=== PATIENT | male | born 1940 | race Caucasian/White ===

== ENCOUNTER → 2018-07-24 08:59 | Outpatient (CLI) | payer OTHER, SELFPAY ==
[2018-07-24 10:10] LABS: Add Manual Diff / Slide Review NO; Basophils Percent Auto 0.7 % (0-2); Eosinophils Percent Auto 3.3 % (2-4); Hematocrit 39.8 % (41-53); Hemoglobin 13.7 g/dL (13.5-17.5); Lymphocytes Percent Auto 24.2 % (25-40); Mean Corpuscular HGB Conc 34.4 % (30-36); Monocytes Percent Auto 9.3 % (3-14); Neutrophils Absolute Auto 3400 /uL (3000-5900); Neutrophils Percent Auto 62.5 % (50-75); Platelet Count 163 X10^3/uL (150-400); Red Blood Cell Count 4.15 X10^6/uL (4.5-5.9); Red Cell Distribution Width 13.3 % (11.6-14.8); White Blood Cell Count 5.5 X10^3/uL (4.5-11.0)
[2018-07-24 10:41] LABS: Alanine Aminotransferase 25 IU/L (21-72); Albumin 4.5 g/dL (3.5-5.0); Albumin Globulin Ratio 1.4 (1.0-2.8); Alkaline Phosphatase 54 U/L (38-126); Aspartate Aminotransferase 25 IU/L (17-59); BUN Creatinine Ratio 14.2 (6-22); Bilirubin Total 1.3 mg/dL (0.2-1.3); Blood Urea Nitrogen 17 mg/dL (9-20); Calcium 9.5 mg/dL (8.4-10.2); Carbon Dioxide 33 mmol/L (22-32); Chloride 99 mmol/L (98-107); Cholesterol 153 mg/dL (140-199); Estimated Glomerular Filt Rate 58.3 mL/min (>60); Globulin 3.3 g/dL (1.7-4.1); Glucose 94 mg/dL (80-110); HDL Cholesterol 46 mg/dL (40-60); HEMOLYSIS < 15 (0-50); LDL Cholesterol Calculated 84 mg/dL (<100); Potassium 4.8 mmol/L (3.4-5.1); Sodium 141 mmol/L (137-145); Total Protein 7.8 g/dL (6.3-8.2); Triglycerides 114 mg/dL (35-150)
[2018-07-24 11:08] LABS: Prostate Specific Antigen 0.656 ng/mL (0.10-4.00)
[2018-07-24 11:09] LABS: Thyroid Stimulating Hormone 1.25 uIU/mL (0.47-4.68)
== END ==
PROVIDERS: PCP Family Medicine; Visit Provider Family Medicine
DX: E78.5 Hyperlipidemia, unspecified (principal); I10 Essential (primary) hypertension; I77.9 Disorder of arteries and arterioles, unspecified
CPT/HCPCS: 36415; 80053; 80061; 84153; 84443; 85025

== ENCOUNTER → 2018-08-08 10:40 | Outpatient (CLI) | payer OTHER, SELFPAY ==
--- NOTE | 2018-08-08 10:42 | DI.US.S_ITS ---
PROCEDURE: US CAROTID DOPPLER BI INDICATIONS: CAD TECHNIQUE: Color and pulse Doppler interrogation was performed of both carotid systems, with image documentation and velocity measurements. COMPARISON: [facility], [place], CAROTID ARTERY DOPPLER BILAT, 02/01/2016, 12:46. [facility], [place], CAROTID ARTERY DOPPLER BILAT, 09/10/2014, 9:39. [facility], [place], CAROTID ARTERY DOPPLER BILAT, 03/27/2012, 9:47. FINDINGS: Stenosis calculations are based on SRU (Society of Radiologists in Ultrasound) criteria. Right side: Brachial blood pressure: 124/64 mm Hg. Common carotid artery peak systolic velocity: 90 cm/sec. Internal carotid artery peak systolic velocity: 99 cm/sec. Internal carotid artery end diastolic velocity: 11 cm/sec. External carotid artery peak systolic velocity: 99 cm/sec. ICA/CCA peak systolic ratio: 1.1. 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 Vertebral artery: Flow direction is antegrade. Left side: Brachial blood pressure: 124 was any 3 mm Hg. Common carotid artery peak systolic velocity: 131 cm/sec. Internal carotid artery peak systolic velocity: 107 cm/sec. Internal carotid artery end diastolic velocity: 12 cm/sec. External carotid artery peak systolic velocity: 124 cm/sec. ICA/CCA peak systolic ratio: 0.8. Gautam scale imaging description: Mild soft plaque Percent internal carotid artery stenosis: Less than 50% stenosis. Vertebral artery: Flow direction is antegrade. IMPRESSION: Less than 50% stenosis at the proximal internal carotid arteries bilaterally. Dictated by: Riley Askew M.D. on 08/08/2018 at 12:31 Approved by: Riley Askew M.D. on 08/08/2018 at 12:52
== END ==
PROVIDERS: PCP Family Medicine; Visit Provider Family Medicine
DX: I65.23 Occlusion and stenosis of bilateral carotid arteries (principal); I25.10 Atherosclerotic heart disease of native coronary artery without angina pectoris
CPT/HCPCS: 93880

== ENCOUNTER → 2019-08-09 08:41 | Outpatient (CLI) | payer OTHER, SELFPAY ==
[2019-08-09 10:29] LABS: Alanine Aminotransferase 23 IU/L (21-72); Albumin 4.3 g/dL (3.5-5.0); Albumin Globulin Ratio 1.3 (1.0-2.8); Alkaline Phosphatase 50 U/L (38-126); Aspartate Aminotransferase 34 IU/L (17-59); BUN Creatinine Ratio 12.7 (6-22); Blood Urea Nitrogen 14 mg/dL (9-20); Calcium 9.2 mg/dL (8.4-10.2); Carbon Dioxide 31 mmol/L (22-32); Chloride 102 mmol/L (98-107); Cholesterol 149 mg/dL (140-199); Estimated Glomerular Filt Rate > 60.0 mL/min (>60); Globulin 3.2 g/dL (1.7-4.1); Glucose 95 mg/dL (80-110); HDL Cholesterol 41 mg/dL (40-60); HEMOLYSIS < 15 (0-50); LDL Cholesterol Calculated 83 mg/dL (<100); Potassium 4.4 mmol/L (3.4-5.1); Sodium 141 mmol/L (137-145); Total Protein 7.5 g/dL (6.3-8.2); Triglycerides 125 mg/dL (35-150)
[2019-08-09 10:35] LABS: Add Manual Diff / Slide Review NO; Basophils Absolute Auto 100 /uL (0-100); Basophils Percent Auto 0.9 % (0-2); Eosinophils Absolute Auto 300 /uL (0-450); Eosinophils Percent Auto 5.8 % (2-4); Hematocrit 37.6 % (41-53); Hemoglobin 12.8 g/dL (13.5-17.5); Lymphocytes Absolute Auto 1400 /uL (1100-4500); Lymphocytes Percent Auto 23.5 % (25-40); Mean Corpuscular HGB Conc 33.9 % (30-36); Mean Corpuscular Volume 97.4 fL (80-100); Monocytes Absolute Auto 500 /uL (0-900); Monocytes Percent Auto 8.5 % (3-14); Neutrophils Absolute Auto 3600 /uL (1500-7000); Neutrophils Percent Auto 61.3 % (50-75); Platelet Count 185 X10^3/uL (150-400); Red Blood Cell Count 3.87 X10^6/uL (4.5-5.9); Red Cell Distribution Width 13.7 % (11.6-14.8); White Blood Cell Count 5.9 X10^3/uL (4.5-11.0)
[2019-08-09 10:53] LABS: Prostate Specific Antigen Scrn 0.687 ng/mL (0.1-4.0)
[2019-08-09 11:29] LABS: Thyroid Stimulating Hormone 1.69 uIU/mL (0.47-4.68)
== END ==
PROVIDERS: PCP Family Medicine; Visit Provider Family Medicine
DX: Z12.5 Encounter for screening for malignant neoplasm of prostate (principal); Z13.0 Encounter for screening for diseases of the blood and blood-forming organs and certain disorders involving the immune mechanism; Z13.1 Encounter for screening for diabetes mellitus; Z13.220 Encounter for screening for lipoid disorders; Z13.29 Encounter for screening for other suspected endocrine disorder; Z13.6 Encounter for screening for cardiovascular disorders
CPT/HCPCS: 36415; 80053; 80061; 84443; 85025; G0103

== ENCOUNTER → 2020-04-09 08:33 | Outpatient (CLI) | payer OTHER, SELFPAY ==
[2020-04-09 10:19] LABS: Cholesterol 136 mg/dL (140-199); HDL Cholesterol 43 mg/dL (40-60); LDL Cholesterol Calculated 75 mg/dL (<100); Triglycerides 89 mg/dL (35-150)
== END ==
PROVIDERS: PCP Family Medicine; Referring Provider Family Medicine; Visit Provider Family Medicine
DX: E78.5 Hyperlipidemia, unspecified (principal)
CPT/HCPCS: 36415; 80061

== ENCOUNTER 2020-08-04 08:52 | Emergency (ER) | payer OTHER, SELFPAY ==
[2020-08-04] VITALS (8 sets, daily range): BP systolic 170–206; BP diastolic 77–85; PULSE 55–59; RESP 12–18; TEMP 37.1; O2SAT 98–100; BMI 25.1
--- NOTE | 2020-08-04 08:58 | DI.RAD.S_ITS ---
PROCEDURE: XR CHEST 1V INDICATIONS: Chest pain TECHNIQUE: One view of the chest was acquired. COMPARISON: [facility], , CHEST 2 VIEW, 11/07/2008, 13:30. FINDINGS: Surgical changes and devices: None. Lungs and pleura: Lungs are clear. No pleural effusions or pneumothorax. Mediastinum: Mediastinal contours appear normal. Heart size is normal. Bones and chest wall: No suspicious bony lesions. Overlying soft tissues appear unremarkable. IMPRESSION: No acute pulmonary process. Dictated by: Emy Lebron M.D. on 08/04/2020 at 9:28 Approved by: Emy Lebron M.D. on 08/04/2020 at 9:30
--- NOTE | 2020-08-04 09:18 | ED.CHESTPAIN ---
HPI - Chest Pain General Chief Complaint: Chest Pain Stated Complaint: chest discomfort Time Seen by Provider: 08/04/20 08:57 Source: patient Mode of arrival: Ambulatory Limitations: no limitations History of Present Illness HPI narrative: 80-year-old male here for evaluation of left-sided chest discomfort. Patient states that it occurred earlier today when he was walking [place] He states it was a fairly sudden onset. Did cause him to have to stop. No other associated symptoms. Not worse with palpation or breathing. He is unsure as to how long it lasted be did not think it was very long. He was symptom-free since arriving here in the emergency department. He states he has had very similar symptoms off and on for the past several months. He states that it is not always associated with walking or exerting himself. It can happen when he is just sitting. Does see a sales representative [employer]. States that he has had evaluation of his heart in the past but never for the symptoms that brought him in to the emergency department today or that have been happening over the past several months. Related Data Home Medications Medication Instructions Recorded Confirmed ASPIRIN (Aspirin) 81 mg PO Q DAY #0 08/22/11 04/01/20 Previous Rx's Medication Instructions Recorded carvedilol [Coreg] 3.125 mg PO BID #180 tab 04/14/17 clopidogrel [Plavix] 75 mg PO QDAY #90 tab 04/24/17 ramipril [Altace] 2.5 mg PO Q DAY #90 cap 06/08/17 rosuvastatin 10 mg tablet 10 mg PO QDAY #45 tab 07/02/19 hydroxyzine pamoate 25 mg capsule 25 mg PO TID PRN #60 cap 04/01/20 triamcinolone acetonide 0.1 % 1 applictn TOP BID #80 gram 04/01/20 topical cream isosorbide dinitrate 30 mg PO DAILY #30 tab 08/04/20 Allergies Allergy/AdvReac Type Severity Reaction Status Date / Time No Known Drug Allergies Allergy Unverified 08/13/19 14:12 Review of Systems Constitutional Constitutional: Denies fever(s) and Denies headache(s) ENT Ears, Nose, Mouth, and Throat: Denies headache(s) Cardiovascular Cardiovascular: Reports chest pain, Denies syncope, Denies rapid heart rate, Denies pedal edema, Denies irregular heart rhythm, Denies leg edema, Denies dyspnea and Denies orthopnea Respiratory Respiratory: Denies cough and Denies dyspnea Gastrointestinal Gastrointestinal: Denies abdominal pain, Denies nausea and Denies vomiting Genitourinary Genitourinary: Denies dysuria Genitourinary: Denies dysuria Musculoskeletal Musculoskeletal: Denies arthralgias and Denies myalgias Integumentary/Breasts Skin/Breast: Denies lesions and Denies rash Neurologic Neurologic: Denies behavioral changes, Denies syncope and Denies headache(s) Psychiatric Psychiatric: Denies behavioral changes Hematologic/Lymphatic Hematologic/Lymphatic: Denies easy bleeding and Denies easy bruising Allergic/Immunologic Allergic/Immunologic: Denies urticaria Patient History Medical History Carotid artery disease (Chronic) Chicken pox (Resolved ~1940) Constipation (Chronic) Coronary artery disease (Chronic ~2002) Fractures (Resolved) GERD (gastroesophageal reflux disease) (Chronic) Glaucoma (Chronic) Hearing deficit (Chronic) Hypertension (Chronic) Liver disease (Chronic) Loss of teeth (Chronic) Measles (Resolved ~1944) Mumps (Resolved ~1944) Peripheral vascular disease (Chronic) Shingles (Resolved ~2007) Skin cancer (Chronic ~2009) Skin inflammation (Chronic ~2010) TIA (transient ischemic attack) (Resolved ~2004) Tinnitus (Chronic) Vision disorder (Chronic) Surgical History (Updated 08/13/19 @ 17:18 by Shamar Rivas MD) Anesthesia (Resolved) History of surgery (Resolved) Status post appendectomy (~1944) Social History Smoking Status: Never smoker Smoking Status: Never smoker alcohol intake frequency: a few times a month Alcohol type: wine Substance Use Type: does not use Exam Initial Vital Signs Initial Vital Signs: Vital Signs Temperature 98.7 F 08/04/20 09:02 Pulse Rate 56 L 08/04/20 09:02 Respiratory Rate 18 08/04/20 09:02 Blood Pressure 170/77 H 08/04/20 09:02 Pulse Oximetry 99 08/04/20 09:02 Const General: cooperative and comfortable Limitations: mental status not altered HENMT Head: normal to inspection and normocephalic Resp Effort & Inspection: normal respiratory effort Auscultation: clear to auscultation bilaterally Cardio Rate: bradycardic Rhythm: regular rhythm Pulses: radial pulses present GI Inspection: non-distended Palpation: soft, No firm and No tender Skin Lesions: no lesions Rashes: no rashes Neuro General: patient alert and patient awake Cognition: normal cognition Speech: speech normal Extrem General: normal to inspection and capillary refill normal Psych Appearance: grossly normal and well kempt Scores GCS [place] coma scale eye opening: Spontaneous Varinder coma scale verbal response: Orientated Varinder coma scale motor response: Obey commands Varinder coma scale total score: 15 Course Orders Ordered: ED Orders 08/04/20 08:58 XR chest 1V Stat EKG-12 Lead Stat 08/04/20 09:41 Complete Blood Count AUTO DIFF Stat Comprehensive Metabolic Panel Stat Lipase Stat Partial Thromboplastin Time Stat Prothrombin Time INR Stat Troponin & CK Cardiac Panel Stat Vital Signs Vital signs: Vital Signs - 8 hr 08/04/20 09:02 08/04/20 10:09 08/04/20 10:30 Temperature 98.7 F Pulse Rate 56 L 56 L 55 L Respiratory Rate 18 Blood Pressure 170/77 H 187/85 H Pulse Oximetry 99 99 99 MDM - Chest Pain Lab Data Attestation: I reviewed the patient's lab results. Result diagrams: 08/04/20 09:41 08/04/20 09:41 Labs: Lab Results 08/04/20 08/04/20 08/04/20 Range/Units 09:41 09:41 09:41 WBC 6.0 (4.5-11.0) X10^3/uL RBC 3.75 L (4.5-5.9) X10^6/uL Hgb 12.4 L (13.5-17.5) g/dL Hct 36.5 L (41-53) % MCV 97.4 (80-100) fL MCH 32.9 (26-34) PG MCHC 33.8 (30-36) % RDW 13.6 (11.6-14.8) % Plt Count 160 (150-400) X10^3/uL Neut % (Auto) 59.6 (50-75) % Lymph % (Auto) 26.6 (25-40) % [place] % (Auto) 9.8 (3-14) % Eos % (Auto) 3.5 (2-4) % Baso % (Auto) 0.5 (0-2) % Neut # (Auto) 3600 (1952-6354) /uL Lymph # (Auto) 1600 (0389-4370) /uL [place] # (Auto) 600 (0-900) /uL Eos # (Auto) 200 (0-450) /uL Baso # (Auto) 0 (0-100) /uL PT 12.7 (10.1-12.7) SECONDS INR 1.1 (0.9-1.3) APTT 31 (26.4-36.2) SECONDS Sodium 138 (137-145) mmol/L Potassium 4.3 (3.4-5.1) mmol/L Chloride 104 (98-107) mmol/L Carbon Dioxide 29 (22-32) mmol/L BUN 18 (9-20) mg/dL Creatinine 1.06 (0.66-1.25) mg/dL Estimated GFR > 60.0 (>60) mL/min BUN/Creatinine Ratio 17.0 (6-22) Glucose 97 (80-110) mg/dL Calcium 8.9 (8.4-10.2) mg/dL Total Bilirubin 0.8 (0.2-1.3) mg/dL AST 24 (17-59) IU/L ALT 16 (<50) IU/L Alkaline Phosphatase 51 (38-126) U/L Total Creatine Kinase 107 (55-170) U/L CK-MB (CK-2) 1.77 (<2.37) ng/mL CK-MB (CK-2) Rel Index 1.7 (1.5-5.0) % Troponin I < 0.012 (0.01-0.034) ng/mL Total Protein 7.2 (6.3-8.2) g/dL Albumin 4.0 (3.5-5.0) g/dL Globulin 3.2 (1.7-4.1) g/dL Albumin/Globulin Ratio 1.3 (1.0-2.8) Lipase 66 (23-300) U/L Imaging Data Chest x-ray: Radiologist's Impression: [address] [address] XRay Report Signed Patient: Zana Jeter R#: [id number] : 8Acct:[id number] Age/Sex: 80 / MDate of Service: 08/04/20 Loc: ED Accession Number: [id number] Procedure: XR chest 1V Ordering Provider: Brayan Edwards D.O. PROCEDURE: XR CHEST 1V INDICATIONS: Chest pain TECHNIQUE: One view of the chest was acquired. COMPARISON: [facility], CHEST 2 VIEW, 11/07/2008, 13:30. FINDINGS: Surgical changes and devices: None. Lungs and pleura: Lungs are clear. No pleural effusions or pneumothorax. Mediastinum: Mediastinal contours appear normal. Heart size is normal. Bones and chest wall: No suspicious bony lesions. Overlying soft tissues appear unremarkable. IMPRESSION: No acute pulmonary process. Dictated by: Emy Lebron M.D. on 08/04/2020 at 9:28 Approved by: Emy Lebron M.D. on 08/04/2020 at 9:30 ECG Data Attestation: I personally reviewed and interpreted this ECG as follows: Prior ECG tracings: not available for review Interpretation: Sinus bradycardia Ventricular rate of 58 First degree AV block appear interval 2 week 2 milliseconds Normal QRS Normal QTC No ST T wave changes MDM Narrative Medical decision making narrative: Patient has been asymptomatic since being here in the ER. Has 1st degree AV block. Troponins negative. He has known coronary artery disease. I did discuss the case with Dr. Robb who is the patient's sales representative [employer]. Dr. Robb recommended that we place the patient on Imdur and patellar states that his office will contact the patient in the next day to schedule him for a nuclear stress test. I did discuss this with the patient. We discussed strict return precautions. He expressed understanding and agreement. Discharge Plan Departure Patient Disposition: Home Clinical Impression: Chest pain Instructions: DI for Chest Pain Activity Restrictions/Additional Instructions: Dr. Robb would like you to start on a medication called Imdur. Prescription for this was provided to you today. Please fill it and start taking as directed. This will be in addition to all of your other medications. His office will also contact you to schedule an appointment this week. If you do not hear from them today please contact their office tomorrow morning. Return to the emergency department for any new or worsening symptoms. Prescriptions: New isosorbide dinitrate 30 mg tablet 30 mg PO DAILY Qty: 30 RF: 0 No Action ASPIRIN (Aspirin) 81 mg PO Q DAY Qty: 0 RF: 0 carvedilol [Coreg] 3.125 MG tablet 3.125 mg PO BID Qty: 180 RF: 3 clopidogrel [Plavix] 75 MG tablet 75 mg PO QDAY Qty: 90 RF: 3 ramipril [Altace] 2.5 MG capsule 2.5 mg PO Q DAY Qty: 90 RF: 0 rosuvastatin [Crestor] 10 mg tablet 10 mg PO QDAY Qty: 45 RF: 3 triamcinolone acetonide 0.1 % cream 1 applictn TOP BID Qty: 80 RF: 3 hydroxyzine pamoate 25 mg capsule 25 mg PO TID PRN (Reason: itching) Qty: 60 RF: 5 Referrals: Shamar Rivas MD [Primary Care Provider] -
--- NOTE | 2020-08-04 09:25 | PC.NURSE ---
Pt declines IV
[2020-08-04 09:49] LABS: Add Manual Diff / Slide Review NO; Basophils Absolute Auto 0 /uL (0-100); Basophils Percent Auto 0.5 % (0-2); Eosinophils Absolute Auto 200 /uL (0-450); Eosinophils Percent Auto 3.5 % (2-4); Hematocrit 36.5 % (41-53); Hemoglobin 12.4 g/dL (13.5-17.5); Lymphocytes Absolute Auto 1600 /uL (1100-4500); Lymphocytes Percent Auto 26.6 % (25-40); Mean Corpuscular HGB Conc 33.8 % (30-36); Mean Corpuscular Hemoglobin 32.9 PG (26-34); Mean Corpuscular Volume 97.4 fL (80-100); Monocytes Absolute Auto 600 /uL (0-900); Monocytes Percent Auto 9.8 % (3-14); Neutrophils Absolute Auto 3600 /uL (1500-7000); Neutrophils Percent Auto 59.6 % (50-75); Platelet Count 160 X10^3/uL (150-400); Red Blood Cell Count 3.75 X10^6/uL (4.5-5.9); Red Cell Distribution Width 13.6 % (11.6-14.8)
[2020-08-04 09:57] LABS: INR 1.1 (0.9-1.3); Prothrombin Time 12.7 SECONDS (10.1-12.7)
[2020-08-04 10:00] LABS: PTT Partial Thromboplastin Tim 31 SECONDS (26.4-36.2)
[2020-08-04 10:04] LABS: Alanine Aminotransferase 16 IU/L (<50); Albumin Globulin Ratio 1.3 (1.0-2.8); Alkaline Phosphatase 51 U/L (38-126); Aspartate Aminotransferase 24 IU/L (17-59); Bilirubin Total 0.8 mg/dL (0.2-1.3); Blood Urea Nitrogen 18 mg/dL (9-20); Calcium 8.9 mg/dL (8.4-10.2); Carbon Dioxide 29 mmol/L (22-32); Chloride 104 mmol/L (98-107); Creatine Kinase 107 U/L (55-170); Estimated Glomerular Filt Rate > 60.0 mL/min (>60); Globulin 3.2 g/dL (1.7-4.1); Glucose 97 mg/dL (80-110); HEMOLYSIS < 15 (0-50); Lipase 66 U/L (23-300); Potassium 4.3 mmol/L (3.4-5.1); Sodium 138 mmol/L (137-145); Total Protein 7.2 g/dL (6.3-8.2)
[2020-08-04 10:14] LABS: Troponin I < 0.012 ng/mL (0.01-0.034)
[2020-08-04 10:19] LABS: CKMB % Relative Index 1.7 % (1.5-5.0); Creatine Kinase MB 1.77 ng/mL (<2.37)
== END 2020-08-04 11:46 | disposition home or self-care (01) ==
PROVIDERS: Emergency Provider Emergency Medicine; PCP Family Medicine
DX: R07.9 Chest pain, unspecified (principal)
CPT/HCPCS: 36415; 71045; 80053; 82550; 82553; 83690; 84484; 85025; 85610; 85730; 93005; 99281; 99284

== ENCOUNTER → 2020-12-16 10:20 | Outpatient (CLI) | payer OTHER, SELFPAY ==
[2020-12-16 11:51] LABS: BUN Creatinine Ratio 11.4 (6-22); Blood Urea Nitrogen 13 mg/dL (9-20); Calcium 9.2 mg/dL (8.4-10.2); Carbon Dioxide 34 mmol/L (22-32); Chloride 103 mmol/L (98-107); Estimated Glomerular Filt Rate > 60.0 mL/min (>60); Glucose 104 mg/dL (80-110); HEMOLYSIS < 15 (0-50); Potassium 4.4 mmol/L (3.4-5.1); Sodium 137 mmol/L (137-145)
== END ==
PROVIDERS: PCP Internal Medicine; Referring Provider Internal Medicine; Visit Provider Nurse Practitioner
DX: I25.10 Atherosclerotic heart disease of native coronary artery without angina pectoris (principal); I10 Essential (primary) hypertension; Z79.899 Other long term (current) drug therapy
CPT/HCPCS: 36415; 80048

== ENCOUNTER 2020-12-17 13:43 | Emergency (ER) | payer OTHER, SELFPAY ==
[2020-12-17] VITALS (13 sets, daily range): BP systolic 127–215; BP diastolic 60–98; PULSE 59–64; RESP 5–23; TEMP 37.2; O2SAT 94–98; BMI 26.1
--- NOTE | 2020-12-17 14:19 | DI.CT.S_ITS ---
PROCEDURE: CT HEAD/BRAIN WO CON INDICATIONS: dizzy TECHNIQUE: Noncontrast 4.5 mm thick angled axial sections acquired from the foramen magnum to the vertex, with coronal and sagittal reformats. For radiation dose reduction, the following was used: automated exposure control, adjustment of mA and/or kV according to patient size. COMPARISON: None. FINDINGS: Image quality: Excellent. CSF spaces: Basal cisterns are patent. No extra-axial fluid collections. Ventricles are normal in size and shape. Brain: No midline shift. No intracranial masses or hemorrhage. Gautam-white matter interface is normal. Skull and face: Calvarium and visualized facial bones are intact, without suspicious lesions. Sinuses: Visualized sinuses and mastoids are clear. IMPRESSION: Mild microvascular atherosclerotic change in the deep white matter of each hemisphere. Relatively prominent atherosclerotic calcification at the vertebral arteries is noted. Moderate carotid calcification at the [id number] is present greater on the left than the right. No aneurysm or hemorrhage found. Dictated by: Riley Askew M.D. on 12/17/2020 at 15:05 Approved by: Riley Askew M.D. on 12/17/2020 at 15:06
[2020-12-17 14:33] LABS: Add Manual Diff / Slide Review NO; Basophils Absolute Auto 100 /uL (0-100); Basophils Percent Auto 0.8 % (0-2); Eosinophils Absolute Auto 300 /uL (0-450); Eosinophils Percent Auto 3.9 % (2-4); Hematocrit 39.7 % (41-53); Hemoglobin 13.5 g/dL (13.5-17.5); Lymphocytes Absolute Auto 1500 /uL (1100-4500); Mean Corpuscular HGB Conc 33.9 % (30-36); Mean Corpuscular Volume 97.2 fL (80-100); Monocytes Absolute Auto 700 /uL (0-900); Monocytes Percent Auto 10.5 % (3-14); Neutrophils Absolute Auto 4000 /uL (1500-7000); Neutrophils Percent Auto 61.8 % (50-75); Platelet Count 172 X10^3/uL (150-400); Red Blood Cell Count 4.09 X10^6/uL (4.5-5.9); Red Cell Distribution Width 13.6 % (11.6-14.8); White Blood Cell Count 6.5 X10^3/uL (4.5-11.0)
[2020-12-17 14:49] LABS: Creatine Kinase 115 U/L (55-170)
[2020-12-17 14:50] LABS: Blood Urea Nitrogen 13 mg/dL (9-20); Carbon Dioxide 27 mmol/L (22-32); Chloride 102 mmol/L (98-107); Estimated Glomerular Filt Rate > 60.0 mL/min (>60); Glucose 119 mg/dL (80-110); Potassium 5.3 mmol/L (3.4-5.1); Sodium 136 mmol/L (137-145)
[2020-12-17 14:51] LABS: HEMOLYSIS 149 (0-50)
[2020-12-17 15:02] LABS: Troponin I < 0.012 ng/mL (0.01-0.034)
--- NOTE | 2020-12-17 15:04 | PC.NURSE ---
respiratory rate was charted as 5. That is not accurate.
--- NOTE | 2020-12-17 15:04 | PC.NURSE ---
patient has had RR within normal limits and remains in normal limits
[2020-12-17 15:05] LABS: CKMB % Relative Index 1.5 % (1.5-5.0); Creatine Kinase MB 1.77 ng/mL (<2.37)
--- NOTE | 2020-12-17 15:48 | ED_ITS ---
HPI - Dizziness General Chief Complaint: Dizziness Stated Complaint: cardio sent him, sizziness/light headed Time Seen by Provider: 12/17/20 13:51 Source: patient Mode of arrival: Ambulatory Limitations: no limitations History of Present Illness HPI Narrative: Patient is an 80-year-old male with history of bilateral carotid endarterectomy is cardiac stents presenting today with dizziness. He said actually started yesterday morning when he rolled over in bed from 1 side to the other and he got dizzy. He said it was much better if he was propped up in bed verses lying flat. He was able to go slow throughout the day in improved. He denies any syncopal episodes blurry vision nausea vomiting chest pain palpit ations weakness numbness or tingling. He says today it is much better but he talked to his flower picker who recommended he come to the ED for evaluation. MD complaint: dizziness Onset (ago): day(s) (2) Timing: sudden onset Description: sense of movement Related Data Home Medications Medication Instructions Recorded Confirmed ASPIRIN (Aspirin) 81 mg PO Q DAY #0 08/22/11 04/01/20 Previous Rx's Medication Instructions Recorded carvedilol [Coreg] 3.125 mg PO BID #180 tab 04/14/17 clopidogrel [Plavix] 75 mg PO QDAY #90 tab 04/24/17 ramipril [Altace] 2.5 mg PO Q DAY #90 cap 06/08/17 hydroxyzine pamoate 25 mg capsule 25 mg PO TID PRN #60 cap 04/01/20 triamcinolone acetonide 0.1 % 1 applictn TOP BID #80 gram 04/01/20 topical cream isosorbide dinitrate 30 mg PO DAILY #30 tab 08/04/20 rosuvastatin 10 mg tablet 10 mg PO QDAY #45 tab 08/18/20 Allergies Allergy/AdvReac Type Severity Reaction Status Date / Time No Known Drug Allergies Allergy Verified 12/17/20 13:56 Review of Systems Review of Systems ROS Unobtainable: All systems reviewed & are unremarkable except as noted in HPI and below Constitutional Constitutional: Denies chills, Denies fever(s), Denies frequent falls, Denies headache(s), Denies lethargy and Denies weakness Eyes Eyes: Denies change in vision, Denies eye discharge, Denies irritation and Denies loss of vision ENT Ears, Nose, Mouth, and Throat: Denies change in voice, Reports dizziness, Denies headache(s), Denies neck pain and Denies sore throat Cardiovascular Cardiovascular: Denies chest pain, Denies syncope, Denies irregular heart rhythm, Denies lightheadedness, Denies palpitations, Denies dyspnea, Denies dyspnea on exertion and Denies orthopnea Respiratory Respiratory: Denies cough, Denies dyspnea, Denies dyspnea on exertion and Denies wheezing Gastrointestinal Gastrointestinal: Denies abdominal pain, Denies change in bowel habits, Denies diarrhea, Denies nausea and Denies vomiting Musculoskeletal Musculoskeletal: Denies neck pain Neurologic Neurologic: Reports system reviewed and no additional complaints, except as documented, Reports dizziness, Denies syncope, Denies frequent falls, Denies headache(s), Denies loss of vision, Denies radicular pain and Denies weakness Endocrine Endocrine: Denies palpitations Allergic/Immunologic Allergic/Immunologic: Denies wheezing Patient History Medical History (Updated 12/17/20 @ 19:48 by Yarely Davies DO) Carotid artery disease Chicken pox (~194) Constipation Coronary artery disease (~2002) Fractures GERD (gastroesophageal reflux disease) Glaucoma Hearing deficit Hypertension Liver disease Loss of teeth Measles (~194) Mumps (~194) Peripheral vascular disease Shingles (~2007) Skin cancer (~2009) Skin inflammation (~2010) TIA (transient ischemic attack) (~2004) Tinnitus Vision disorder Surgical History Anesthesia History of surgery Status post appendectomy (~194) Social History Smoking Status: Never smoker Smoking Status: Never smoker alcohol intake frequency: a few times a month Alcohol type: wine Substance Use Type: does not use Exam Initial Vital Signs Initial Vital Signs: Vital Signs Temperature 98.9 F 12/17/20 13:49 Pulse Rate 63 12/17/20 13:49 Respiratory Rate 14 12/17/20 13:49 Blood Pressure 195/84 H 12/17/20 13:49 Pulse Oximetry 98 12/17/20 13:49 GENERAL: Alert pleasant 80-year-old male hard of hearing and in no acute distress. HEENT: Head atraumatic,EOMI, pupils reactive, no nystagmus face symmetric, moist mucous membranes CARDIOVASCULAR: Regular rate and rhythm without murmurs, rubs or gallops. RESPIRATORY: Breath sounds equal bilaterally, no wheezes rales or rhonchi. ABDOMEN: Soft, nontender. Normoactive bowel sounds all 4 quadrants. No guarding or rebound. EXTREMITIES: Normal range of motion, no clubbing or edema. Neurovascularly intact NEUROLOGICAL: Alert and oriented x4.Normal gait and speech. Cranial nerves II through XII grossly intact. Good bsjino-jr-vstd, good txrd-is-kebr, strength equal bilaterally, no dysarthria or aphasia, sensation in tact to soft touch bilaterally, no visual changes, no facial droop SKIN: Warm, dry, no laceration, no petechiae, no rashes or lesions. Course Orders Ordered: ED Orders 12/17/20 14:19 CT head/brain wo con Stat 12/17/20 14:25 Basic Metabolic Panel Stat Complete Blood Count AUTO DIFF Stat Troponin & CK Cardiac Panel Stat 12/17/20 15:49 CT angio head and neck Stat 12/17/20 17:24 MR stroke Stat Vital Signs Vital signs: Vital Signs - 8 hr 12/17/20 13:49 12/17/20 13:59 12/17/20 14:00 Temperature 98.9 F Pulse Rate 63 63 64 Respiratory Rate 14 14 17 Blood Pressure 195/84 H Pulse Oximetry 98 98 97 12/17/20 14:27 12/17/20 14:37 12/17/20 14:38 Temperature Pulse Rate 63 60 61 Respiratory Rate 13 5 L Blood Pressure 127/60 180/83 H Pulse Oximetry 97 98 98 12/17/20 15:00 12/17/20 15:30 12/17/20 16:00 Temperature Pulse Rate 60 60 63 Respiratory Rate 14 14 23 Blood Pressure 129/62 149/71 H Pulse Oximetry 94 95 98 12/17/20 16:12 12/17/20 16:30 12/17/20 17:00 Temperature Pulse Rate 61 59 L 62 Respiratory Rate 7 L 11 L 12 Blood Pressure 208/96 H 178/83 H 207/93 H Pulse Oximetry 98 97 98 12/17/20 17:30 Temperature Pulse Rate 63 Respiratory Rate 12 Blood Pressure 215/98 H Pulse Oximetry 98 MDM - Dizziness Lab Data Attestation: I reviewed the patient's lab results. Result diagrams: 12/17/20 14:25 12/17/20 14:25 Labs: Lab Results 12/17/20 12/17/20 12/17/20 Range/Units 14:25 14:25 14:25 WBC 6.5 (4.5-11.0) X10^3/uL RBC 4.09 L (4.5-5.9) X10^6/uL Hgb 13.5 (13.5-17.5) g/dL Hct 39.7 L (41-53) % MCV 97.2 (80-100) fL MCH 33.0 (26-34) PG MCHC 33.9 (30-36) % RDW 13.6 (11.6-14.8) % Plt Count 172 (150-400) X10^3/uL Neut % (Auto) 61.8 (50-75) % Lymph % (Auto) 23.0 L (25-40) % [place] % (Auto) 10.5 (3-14) % Eos % (Auto) 3.9 (2-4) % Baso % (Auto) 0.8 (0-2) % Neut # (Auto) 4000 (1041-5015) /uL Lymph # (Auto) 1500 (4037-4691) /uL [place] # (Auto) 700 (0-900) /uL Eos # (Auto) 300 (0-450) /uL Baso # (Auto) 100 (0-100) /uL Sodium 136 L (137-145) mmol/L Potassium 5.3 H (3.4-5.1) mmol/L Chloride 102 (98-107) mmol/L Carbon Dioxide 27 (22-32) mmol/L BUN 13 (9-20) mg/dL Creatinine 1.00 (0.66-1.25) mg/dL Estimated GFR > 60.0 (>60) mL/min BUN/Creatinine Ratio 13.0 (6-22) Glucose 119 H (80-110) mg/dL Calcium 9.0 (8.4-10.2) mg/dL Total Creatine Kinase 115 (55-170) U/L CK-MB (CK-2) 1.77 (<2.37) ng/mL CK-MB (CK-2) Rel Index 1.5 (1.5-5.0) % Troponin I Cancelled < 0.[address] scan - head: Radiologist's Impression: PROCEDURE: CT HEAD/BRAIN WO CON INDICATIONS: dizzy TECHNIQUE: Noncontrast 4.5 mm thick angled axial sections acquired from the foramen magnum to the vertex, with coronal and sagittal reformats. For radiation dose reduction, the following was used: automated exposure control, adjustment of mA and/or kV according to patient size. COMPARISON: None. FINDINGS: Image quality: Excellent. CSF spaces: Basal cisterns are patent. No extra-axial fluid collections. Ventricles are normal in size and shape. Brain: No midline shift. No intracranial masses or hemorrhage. Gautam-white matter interface is normal. Skull and face: Calvarium and visualized facial bones are intact, without suspicious lesions. Sinuses: Visualized sinuses and mastoids are clear. IMPRESSION: Mild microvascular atherosclerotic change in the deep white matter of each hemisphere. Relatively prominent atherosclerotic calcification at the vertebral arteries is noted. Moderate carotid calcification at the sncqdj-ut-Mumvap is present greater on the left than the right. No aneurysm or hemorrhage found. Dictated by: Riley Askew M.D. on 12/17/2020 at 15:05 CTA - brain/neck: Radiologist's Impression: PROCEDURE: CT ANGIO HEAD AND NECK INDICATIONS: dizzy with hx bilateral carotid TECHNIQUE: After the administration of intravenous contrast, 1 mm thick sections acquired from the aortic arch through the [place]. Post-contrast 4.5 mm thick sections then re-acquired from the foramen magnum to the vertex. 3-dimensional hipmbtx-pdjiscnew-wqmbzjeugl (MIP) and/or volume rendering reformats were acquired of the central intracranial vasculature and neck separately. COMPARISON: [facility], , US CAROTID DOPPLER BI, 08/08/2018, 10:54. FINDINGS: Image quality: Excellent. BRAIN: CSF spaces: Ventricles are normal in size and shape. Basal cisterns are patent. No extra-axial fluid collections. Brain: No midline shift. No intracranial bleeds or masses. Gautam-white matter interface appears intact. Skull and face: Calvarium and facial bones appear intact, without suspicious lesions. Orbits appear normal. Sinuses: Sinuses and mastoids are clear. HEAD CT ANGIOGRAPHY: Anterior circulation: Mild diffuse calcific stenosis of the bilateral internal carotid arteries. The flow within the paired anterior cerebral arteries is normal and symmetric. The flow within the middle cerebral arteries is normal and symmetric. The anterior communicating artery is seen. No aneurysms are seen. Posterior circulation: Visualized portions of the vertebral arteries demonstrate normal caliber, and join to form a normal appearing basilar artery. Flow within the posterior cerebral arteries is normal and symmetric. No aneurysms are seen. NECK CT ANGIOGRAPHY: Thoracic aortic arch demonstrates mild diffuse calcific plaque causing mild diffuse stenosis. Innominate, and right subclavian arteries are patent. Right vertebral artery demonstrates a high-grade calcific origin stenosis, as well as a high-grade calcific stenosis distally, and is otherwise patent. Right common carotid artery is patent. Right internal and external carotid artery demonstrate mild calcific origin stenoses. Right internal carotid artery is otherwise patent. Left common carotid artery demonstrates a mild calcific origin stenosis, and is otherwise patent. Left external carotid artery is patent. Left internal carotid artery demonstrates a roughly 30% origin stenosis, and is otherwise patent. Left subclavian artery demonstrates a high-grade origin stenosis, and is otherwise patent. Left vertebral artery demonstrates mild multifocal calcific stenosis distally, and is otherwise patent. Soft tissues: Visualized neck soft tissues demonstrate no suspicious abnormalities. Bones: No suspicious bony lesions. Visualized cervical spine appears normally aligned. IMPRESSION: 1. No acute process involving the arterial tree of the head and neck. 2. Bilateral internal carotid and vertebral artery stenosis as described above. 3. High-grade left subclavian artery origin stenosis. 4. No acute intracranial abnormality. Any quantitative measurements of stenosis were performed using NASCET criteria. Dictated by: Dario Baer M.D. on 12/17/2020 at 16:21 MR Stroke: Radiologist's Impression: PROCEDURE: MR STROKE Pre- and post-contrast brain MRI, non-contrast brain MR angiogram, pre- and postcontrast neck MR angiogram INDICATIONS: dizzy (per neuro) TECHNIQUE: Brain: Noncontrast axial T1 spin echo, axial T2 fast spin echo, sagittal and axial FLAIR, coronal T2 fast spin echo, axial gradient echo, axial diffusion and ADC through the brain. After the administration of contrast, axial 3D VIBE of the cranial vasculature and brain. Brain MRA: Non-contrast 3-D time of flight MR angiogram, with multiple chvyehb-cqhyjdtql-drhbpbqjue (MIP) reformats performed. Neck MRA: Axial and sagittal TruFISP through the neck. Coronal dynamic MR angiogram during administration of contrast in the arterial and venous phases, with 3- dimenstional koiwxjw-bwdipyaqw-wuiuxflnwe (MIP) reformats constructed from subtraction images. COMPARISON: [facility], CT, CT ANGIO HEAD AND NECK, 12/17/2020, 15:59. FINDINGS: Image quality: Excellent. BRAIN: CSF spaces: Ventricles are normal in size and shape. Basal cisterns are patent. No extra-axial fluid collections. Brain: No acute intracranial bleeds or mass effects. There is a small focus of low gradient echo signal within the right cerebellar hemisphere. There is a 3 mm focus of low gradient echo signal intensity within the right anterior parietal lobe. Mild diffuse cerebral volume loss. Mild degree of patchy high FLAIR signal within the ann ventricular and subcortical white matter. Small chronic right cerebellar infarct. Gautam- white matter interface is normal. Diffusion weighted images show no acute ischemic insults. Brainstem appears normal. Normal intravascular flow voids are present. No abnormal intracranial enhancement. Skull and face: Calvarial marrow signal is normal. Orbits appear normal. Sinuses: Sinuses and mastoids are clear. BRAIN MR ANGIOGRAM: Anterior circulation: Intracranial internal carotid arteries are normal in size and enhancement. The flow within the paired anterior cerebral arteries is normal and symmetric. The flow within the middle cerebral arteries is normal and symmetric. The anterior communicating artery is seen. No stenoses, occlusions, or aneurysms. Posterior circulation: Multifocal moderate high-grade stenosis within the distal right vertebral artery. The visualized portions of the vertebral arteries demonstrate otherwise normal caliber, and join to form a normal appearing basilar artery. The flow within the posterior cerebral arteries is normal and symmetric. No occlusions or aneurysms. NECK MR ANGIOGRAM: Carotids: Great vessels demonstrate a conventional anatomy as they arise from the aortic arch. The origins of the common carotid arteries appear patent. The calibers and courses of both common carotid arteries are normal. Mild, roughly 20% origin stenosis of the bilateral internal carotid arteries. Posterior circulation: High-grade right vertebral artery origin stenosis. Patent left vertebral artery origin. More superior portions of both vertebral arteries demonstrate normal course and caliber, and join to form a normal appearing basilar artery. Miscellaneous: Right subclavian artery is moderately stenotic at its origin. High-grade origin stenosis of the left subclavian artery. Pre-contrast images through the neck show no soft tissue abnormalities. IMPRESSION: BRAIN MRI: 1. No acute intracranial abnormality. No recent infarct. 2. Volume loss and small vessel ischemic disease. 3. Low gradient echo signal intensity foci within the right cerebral and cerebellar hemispheres, consistent with small cavernomas, with chronic surrounding hemorrhagic products. BRAIN MR ANGIOGRAM: 1. No change in distal right vertebral artery stenoses compared to CT angiography examination dated 12/17/2020. 2. No significant stenosis within the anterior circulation, as documented on the CT angiography examination dated 12/17/2020. NECK MR ANGIOGRAM: 1. No significant change in proximal and distal right vertebral artery stenosis compared to CT angiography examination dated 12/17/2020. Patent left vertebral artery. 2. No significant change in mild bilateral internal carotid artery origin stenosis compared to CT angiography examination dated 12/17/2020. 3. No change in left greater than right subclavian artery origin stenoses refugio red to CT angiography examination dated 12/07/2020. Dictated by: Dario Baer M.D. on 12/17/2020 at 19:21 ECG Data Attestation: I personally reviewed and interpreted this ECG as follows: Interpretation: Normal sinus rhythm rate 63 p.r. interval 296 QRS [address] changes or T-wave inversions MDM Narrative Medical decision making narrative: Patient seems to have symptoms of positional vertigo, worse with lying down and started as soon as he turned over. His symptoms although seems to have progressively improved. CT angio does show that he has right vertebral artery stenosis high grade and left subclavian high- grade stenosis. 17:20 Dr Schrader, [facility] has reviewed CT angio at this time she recommend MRI of brain to be sure that there is no brainstem involvement. She is concerned because he does have bad peripheral vascular disease. He is actually taking aspirin and Plavix already. MR is negative. Patient is ambulatory in the ED without difficulty. At this time this is likely vertigo. Dr. Schrader also said at that vertebral artery stenosis is usually medically managed. Patient clinically does seem to be vertigo symptoms have improved recommend outpatient follow-up. Discharge Plan Departure Patient Disposition: Home Clinical Impression: Vertigo Instructions: DI for Vertigo Activity Restrictions/Additional Instructions: *You have been diagnosed with vertigo *What to do: At this time it does not appear that you had a stroke but you do have some narrowing of the right vertebral artery and the left subclavian artery. Please continue to take aspirin and Plavix as instructed and follow up with her primary care provider *Continue to take medications as directed *Follow up with your primary care provider in 2-3 days *Return to ER if you should have increased dizziness, weakness, difficulty walking, persistent vomiting or any new, worsening or concerning symptoms Prescriptions: No Action ASPIRIN (Aspirin) 81 mg PO Q DAY Qty: 0 RF: 0 carvedilol [Coreg] 3.125 MG tablet 3.125 mg PO BID Qty: 180 RF: 3 clopidogrel [Plavix] 75 MG tablet 75 mg PO QDAY Qty: 90 RF: 3 ramipril [Altace] 2.5 MG capsule 2.5 mg PO Q DAY Qty: 90 RF: 0 rosuvastatin [Crestor] 10 mg tablet 10 mg PO QDAY Qty: 45 RF: 3 triamcinolone acetonide 0.1 % cream 1 applictn TOP BID Qty: 80 RF: 3 hydroxyzine pamoate 25 mg capsule 25 mg PO TID PRN (Reason: itching) Qty: 60 RF: 5 isosorbide dinitrate 30 mg tablet 30 mg PO DAILY Qty: 30 RF: 0 Referrals: Andrew Hyde MD [Primary Care Provider] - Josse Robb MD [Non-Staff] -
--- NOTE | 2020-12-17 17:24 | DI.MRI.S_ITS ---
PROCEDURE: MR STROKE Pre- and post-contrast brain MRI, non-contrast brain MR angiogram, pre- and postcontrast neck MR angiogram INDICATIONS: dizzy (per neuro) TECHNIQUE: Brain: Noncontrast axial T1 spin echo, axial T2 fast spin echo, sagittal and axial FLAIR, coronal T2 fast spin echo, axial gradient echo, axial diffusion and ADC through the brain. After the administration of contrast, axial 3D VIBE of the cranial vasculature and brain. Brain MRA: Non-contrast 3-D time of flight MR angiogram, with multiple wzkgzte-baeronkzb-ddljmmjvws (MIP) reformats performed. Neck MRA: Axial and sagittal TruFISP through the neck. Coronal dynamic MR angiogram during administration of contrast in the arterial and venous phases, with 3-dimenstional opgdksn-hoaosaoej-llwjcfzfyq (MIP) reformats constructed from subtraction images. COMPARISON: [facility], CT, CT ANGIO HEAD AND NECK, 12/17/2020, 15:59. FINDINGS: Image quality: Excellent. BRAIN: CSF spaces: Ventricles are normal in size and shape. Basal cisterns are patent. No extra-axial fluid collections. Brain: No acute intracranial bleeds or mass effects. There is a small focus of low gradient echo signal within the right cerebellar hemisphere. There is a 3 mm focus of low gradient echo signal intensity within the right anterior parietal lobe. Mild diffuse cerebral volume loss. Mild degree of patchy high FLAIR signal within the periventricular and subcortical white matter. Small chronic right cerebellar infarct. Gautam-white matter interface is normal. Diffusion weighted images show no acute ischemic insults. Brainstem appears normal. Normal intravascular flow voids are present. No abnormal intracranial enhancement. Skull and face: Calvarial marrow signal is normal. Orbits appear normal. Sinuses: Sinuses and mastoids are clear. BRAIN MR ANGIOGRAM: Anterior circulation: Intracranial internal carotid arteries are normal in size and enhancement. The flow within the paired anterior cerebral arteries is normal and symmetric. The flow within the middle cerebral arteries is normal and symmetric. The anterior communicating artery is seen. No stenoses, occlusions, or aneurysms. Posterior circulation: Multifocal moderate high-grade stenosis within the distal right vertebral artery. The visualized portions of the vertebral arteries demonstrate otherwise normal caliber, and join to form a normal appearing basilar artery. The flow within the posterior cerebral arteries is normal and symmetric. No occlusions or aneurysms. NECK MR ANGIOGRAM: Carotids: Great vessels demonstrate a conventional anatomy as they arise from the aortic arch. The origins of the common carotid arteries appear patent. The calibers and courses of both common carotid arteries are normal. Mild, roughly 20% origin stenosis of the bilateral internal carotid arteries. Posterior circulation: High-grade right vertebral artery origin stenosis. Patent left vertebral artery origin. More superior portions of both vertebral arteries demonstrate normal course and caliber, and join to form a normal appearing basilar artery. Miscellaneous: Right subclavian artery is moderately stenotic at its origin. High-grade origin stenosis of the left subclavian artery. Pre-contrast images through the neck show no soft tissue abnormalities. IMPRESSION: BRAIN MRI: 1. No acute intracranial abnormality. No recent infarct. 2. Volume loss and small vessel ischemic disease. 3. Low gradient echo signal intensity foci within the right cerebral and cerebellar hemispheres, consistent with small cavernomas, with chronic surrounding hemorrhagic products. BRAIN MR ANGIOGRAM: 1. No change in distal right vertebral artery stenoses compared to CT angiography examination dated 12/17/2020. 2. No significant stenosis within the anterior circulation, as documented on the CT angiography examination dated 12/17/2020. NECK MR ANGIOGRAM: 1. No significant change in proximal and distal right vertebral artery stenosis compared to CT angiography examination dated 12/17/2020. Patent left vertebral artery. 2. No significant change in mild bilateral internal carotid artery origin stenosis compared to CT angiography examination dated 12/17/2020. 3. No change in left greater than right subclavian artery origin stenoses compared to CT angiography examination dated 12/07/2020. Dictated by: Dario Baer M.D. on 12/17/2020 at 19:21 Approved by: Dario Baer M.D. on 12/17/2020 at 19:27
== END 2020-12-17 20:02 | disposition home or self-care (01) ==
PROVIDERS: Emergency Provider Emergency Medicine; PCP Internal Medicine
DX: R42 Dizziness and giddiness (principal); Z79.82 Long term (current) use of aspirin; I10 Essential (primary) hypertension; I25.10 Atherosclerotic heart disease of native coronary artery without angina pectoris; I77.9 Disorder of arteries and arterioles, unspecified; Z95.5 Presence of coronary angioplasty implant and graft
CPT/HCPCS: 36415; 70450; 70496; 70498; 70548; 70553; 80048; 82550; 82553; 84484; 85025; 93005; 93010; 99284; Q9967

== ENCOUNTER → 2023-10-12 13:42 | Outpatient (CLI) | payer OTHER, SELFPAY ==
[2023-10-12 18:42] LABS: Alanine Aminotransferase 17 IU/L (<50); Albumin 4.3 g/dL (3.5-5.0); Albumin Globulin Ratio 1.4 (1.0-2.8); Alkaline Phosphatase 55 U/L (38-126); Aspartate Aminotransferase 26 IU/L (17-59); BUN Creatinine Ratio 13.3 (6-22); Bilirubin Total 1.2 mg/dL (0.2-1.3); Blood Urea Nitrogen 14 mg/dL (9-20); Calcium 9.6 mg/dL (8.4-10.2); Carbon Dioxide 29 mmol/L (22-32); Chloride 100 mmol/L (98-107); Cholesterol 155 mg/dL (140-199); Estimated Glomerular Filt Rate > 60 mL/min (>60); Globulin 3.1 g/dL (1.7-4.1); Glucose 97 mg/dL (80-110); HDL Cholesterol 47 mg/dL (40-60); HEMOLYSIS < 15 (0-50); LDL Cholesterol Calculated 86 mg/dL (<100); Potassium 4.4 mmol/L (3.4-5.1); Sodium 138 mmol/L (137-145); Total Protein 7.4 g/dL (6.3-8.2); Triglycerides 108 mg/dL (35-150)
== END ==
PROVIDERS: PCP Internal Medicine; Referring Provider Internal Medicine; Visit Provider Internal Medicine
DX: I10 Essential (primary) hypertension (principal); E78.2 Mixed hyperlipidemia; I25.10 Atherosclerotic heart disease of native coronary artery without angina pectoris
CPT/HCPCS: 36415; 80053; 80061

== ENCOUNTER → 2024-10-01 12:16 | Outpatient (CLI) | payer OTHER, SELFPAY ==
--- NOTE | 2024-10-01 12:17 | DI.US.S_ITS ---
PROCEDURE: US CAROTID DOPPLER BI INDICATIONS: BILATERAL CAROTID ARTERY DISEASE TECHNIQUE: Color and pulse Doppler interrogation was performed of both carotid systems, with image documentation and velocity measurements. COMPARISON: [facility], , CAROTID ARTERY DOPPLER BILAT, 02/01/2016, 12:46. [facility], , US CAROTID DOPPLER BI, 08/08/2018, 10:54. FINDINGS: Stenosis calculations are based on SRU (Society of Radiologists in Ultrasound) criteria. The flow velocities and the arterial waveforms are normal within both carotid arterial systems. Atherosclerotic plaque is seen on both sides. The estimated degree of internal carotid artery stenosis is less than 50%. Antegrade flow is confirmed within both vertebral arteries. IMPRESSION: No hemodynamically significant stenosis is seen. Atherosclerotic plaque is noted bilaterally. No significant change from the prior. Dictated by: Jacek Beckett M.D. on 10/01/2024 at 12:43 Approved by: Jacek Beckett M.D. on 10/01/2024 at 12:43
== END ==
PROVIDERS: PCP Internal Medicine; Referring Provider Internal Medicine Cardiovascular Disease; Visit Provider Internal Medicine Cardiovascular Disease
DX: I65.23 Occlusion and stenosis of bilateral carotid arteries (principal); I77.9 Disorder of arteries and arterioles, unspecified
CPT/HCPCS: 93880

== ENCOUNTER → 2024-11-29 13:10 | Outpatient (CLI) | payer OTHER, SELFPAY ==
[2024-11-29 14:34] LABS: Add Manual Diff / Slide Review NO; Basophils Absolute Auto 100 /uL (0-100); Basophils Percent Auto 0.9 % (0-2); Eosinophils Absolute Auto 200 /uL (0-450); Eosinophils Percent Auto 3.8 % (2-4); Hematocrit 43.3 % (41-53); Hemoglobin 14.4 g/dL (13.5-17.5); Lymphocytes Absolute Auto 1700 /uL (1100-4500); Lymphocytes Percent Auto 28.6 % (25-40); Mean Corpuscular HGB Conc 33.4 % (30-36); Mean Corpuscular Hemoglobin 32.9 PG (26-34); Mean Corpuscular Volume 98.8 fL (80-100); Monocytes Absolute Auto 600 /uL (0-900); Monocytes Percent Auto 9.5 % (3-14); Neutrophils Absolute Auto 3300 /uL (1500-7000); Neutrophils Percent Auto 57.2 % (50-75); Platelet Count 176 X10^3/uL (150-400); Red Blood Cell Count 4.38 X10^6/uL (4.5-5.9); Red Cell Distribution Width 13.4 % (11.6-14.8); White Blood Cell Count 5.9 X10^3/uL (4.5-11.0)
[2024-11-29 14:54] LABS: Alanine Aminotransferase 17 IU/L (<50); Albumin 4.7 g/dL (3.5-5.0); Albumin Globulin Ratio 1.6 (1.0-2.8); Alkaline Phosphatase 61 U/L (38-126); Aspartate Aminotransferase 28 IU/L (17-59); Blood Urea Nitrogen 17 mg/dL (9-20); Calcium 9.3 mg/dL (8.4-10.2); Carbon Dioxide 28 mmol/L (22-32); Chloride 101 mmol/L (98-107); Cholesterol 155 mg/dL (140-199); Estimated Glomerular Filt Rate 58 mL/min (>60); Globulin 2.9 g/dL (1.7-4.1); Glucose 98 mg/dL (80-110); HDL Cholesterol 47 mg/dL (40-60); HEMOLYSIS < 15 (0-50); LDL Cholesterol Calculated 85 mg/dL (<100); Potassium 4.7 mmol/L (3.4-5.1); Sodium 138 mmol/L (137-145); Total Protein 7.6 g/dL (6.3-8.2); Triglycerides 115 mg/dL (35-150)
== END ==
LOC: LAB 13:11
PROVIDERS: PCP Internal Medicine; Referring Provider Internal Medicine; Visit Provider Internal Medicine
DX: I10 Essential (primary) hypertension (principal); E78.2 Mixed hyperlipidemia; I25.10 Atherosclerotic heart disease of native coronary artery without angina pectoris; D64.9 Anemia, unspecified
CPT/HCPCS: 36415; 80053; 80061; 85025